=== PATIENT | female | born 1970 | race American Indian/Alaskan Native ===

== ENCOUNTER 2017-04-04 11:28 | Outpatient (CLI) | payer MEDICARE ==
--- NOTE | 2017-04-04 13:35 | Mammography Report ---
Bilateral mammogram: No previous studies available. CAD study utilized. Findings: Predominance of adipose tissue bilaterally. No mass or microcalcification. Benign calcifications bilaterally. Normal axilla. Impression: Benign findings. Annual followup recommended. BI-RADS CATEGORY: 2 = Benign ACR BI-RADS MAMMOGRAPHIC CODES: 0 = Needs additional imaging evaluation; 1 = Negative; 2 = Benign; 3 = Probably benign; 4 = Suspicious; 5 = Malignant; 6 = Known biopsy-proven malignancy COMMENT: 1. Dense breast tissue, i.e., adenosis, fibrocystic changes, etc., may obscure an underlying neoplasm. 2. Approximately 10% of cancers are not detected with mammography. 3. A negative mammography report should not delay biopsy if a clinically suspicious mass is present. COMMENT: Patient follow-up letters are generated in [employer].
== END 2017-04-04 11:29 | disposition home or self-care (01) ==
LOC: MAMMO 11:28
PROVIDERS: ATTEND Obstetrics & Gynecology
DX: Z12.31 Encounter for screening mammogram for malignant neoplasm of breast (principal); I10 Essential (primary) hypertension; F41.9 Anxiety disorder, unspecified
CPT/HCPCS: 77067; G0202

== ENCOUNTER 2017-07-15 07:17 | Outpatient (CLI) | payer MEDICARE ==
--- NOTE | 2017-07-15 10:15 | Cat Scan Report ---
CT of the abdomen and pelvis with IV and oral contrast. History: Pancreatic mass. Findings: Comparison is made to a previous study on October 25, 2014. A circumscribed hypodense mass in the superior aspect of the liver is similar in size and configuration to the previous study measuring approximately 2 cm in diameter. No peripheral contrast enhancement is seen. The remainder of the liver is unremarkable. The spleen is unremarkable. The pancreas is normal in size and configuration with no evidence of mass or peripancreatic inflammatory change. There is no evidence of pseudocyst. No pancreatic duct dilatation. The common duct is normal in caliber. The kidneys are normal in size and configuration with no evidence of mass or hydronephrosis. No adenopathy is seen within the retroperitoneum. There are no pelvic masses or abnormal fluid collections. The uterus has been removed. There is no evidence of appendicitis. Impression: 1. Stable benign hepatic cyst. 2. No evidence of pancreatic mass or other significant findings. 3. Status post hysterectomy.
== END 2017-07-15 07:18 | disposition home or self-care (01) ==
LOC: CT 07:17
PROVIDERS: ATTEND Internal Medicine
DX: K86.9 Disease of pancreas, unspecified (principal); K76.89 Other specified diseases of liver; Z90.710 Acquired absence of both cervix and uterus
CPT/HCPCS: 74177; Q9967

== ENCOUNTER 2017-10-22 11:00 | Observation (INO) | payer MEDICARE ==
--- NOTE | 2017-10-20 12:24 | Anesthesia Consultation ---
Anesthesia Consult and Med Hx Date of service: 10/20/17 - Airway Anesthetic Teeth Evaluation: Good (needs partials for lower ) ROM Head & Neck: Adequate Mental/Hyoid Distance: Adequate Mallampati Class: Class II Intubation Access Assessment: Possibly Difficult (Patient reports previous difficulty in placing ET tube) - Pulmonary Exam CTA: Yes - Cardiac Exam Cardiac Exam: RRR - Pre-Operative Health Status ASA Pre-Surgery Classification: ASA3 Proposed Anesthetic Plan: General - Pulmonary Hx Smoking: No Hx Sleep Apnea: Yes (No CPAP) - Cardiovascular System Hx Hypertension: No - Central Nervous System Hx Seizures: Yes (last seizure approx 3 weeks ago) Hx Psychiatric Problems: No - Gastrointestinal Hx Gastroesophageal Reflux Disease: Yes - Endocrine Hx Renal Disease: No Hx End Stage Renal Disease: No Hx Insulin Dependent Diabetes: No Hx Thyroid Disease: Yes (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
[2017-10-20 13:30] LABS: Eosinophils # (Auto) 0.1 K/mm3 (0.0-0.4); Eosinophils % (Auto) 2.6 % (0.0-4.3); Hematocrit 40.4 % (30.3-42.9); Hemoglobin 13.2 gm/dl (10.1-14.3); Lymphocytes # (Auto) 1.5 K/mm3 (1.2-5.4); Lymphocytes % (Auto) 33.8 % (13.4-35.0); Mean Corpuscular HGB Conc 33 % (30-34); Mean Corpuscular Hemoglobin 30 pg (28-32); Mean Corpuscular Volume 92 fl (79-97); Monocytes # (Auto) 0.3 K/mm3 (0.0-0.8); Monocytes % (Auto) 7.7 % (0.0-7.3); Platelet Count 208 K/mm3 (140-440); Red Blood Count 4.39 M/mm3 (3.65-5.03); Red Cell Distribution Width 12.9 % (13.2-15.2)
--- NOTE | 2017-10-21 17:22 | History and Physical Report ---
History of Present Illness Date of examination: 10/21/17 Date of admission: 10/22/2017 Chief complaint: pelvic pain History of present illness: 46y/o with chronic pelvic pain for many years. She has a history of a MISSAEL for uterine fibroids and later underwent a left salpingoophorectomy for an adnexal mass. The surgery of complicated by a serosal tear in the sigmoid colon. The procedure had to be converted to an exploratory laparotomy. She reports her pain has been worsening and strongly desires to have her remaining ovary removed. Past History Past Medical History: other (obesity; hiatal hernia) Past Surgical History: other (MISSAEL/ exploratory laparotomy/ left salpingoophorectomy/ BTL) [employer] CHIE[employer] History: herpes Social history: single - Obstetrical History : 4 Para: 2 Hx # Term Pregnancies: 2 Number of Pregnancies: 0 Spontaneous Abortions: 0 Induced : 2 Number of Living Children: 2 Medications and Allergies Allergies Allergy/AdvReac Type Severity Reaction Status Date / Time aspirin Allergy Unknown Verified 10/20/17 14:59 potassium clavulanate Allergy Vomiting Verified 10/20/17 14:59 [From Augmentin] shellfish derived Allergy Anaphylaxis Verified 10/20/17 14:59 shrimp Allergy Anaphylaxis Verified 10/20/17 14:59 amoxicillin trihydrate AdvReac Vomiting Verified 10/20/17 14:59 [From Augmentin] peach AdvReac Unknown Verified 10/20/17 14:59 Home Medications Medication Instructions Recorded Confirmed Last Taken Type Fexofenadine HCl [Cristina] 90 mg PO DAILY PRN 07/14/13 10/20/17 01/28/16 History 90 MG Calcium Carbonate/Vitamin D3 1 each PO DAILY 10/20/17 10/20/17 Unknown History [Caltrate 600 Plus D3 Tablet] Divalproex Sprinkle [DepaKOTE 125 mg PO BID 10/20/17 10/20/17 Unknown History SPRINKLE] Multivit-Min/FA/Lycopen/Lutein 1 each PO DAILY 10/20/17 10/20/17 Unknown History [Centrum Silver Tablet] Active Meds: Active Medications Sodium Chloride (Nacl 0.9% 1000 Ml) 1,000 mls @ 42 mls/hr IV DIRECT MAHAD Review of Systems All systems: negative Genitourinary: pelvic pain - Vital Signs Vital signs: Vital Signs Temp Pulse Resp BP 98.1 F 84 16 132/84 10/20/17 11:30 10/20/17 11:30 10/20/17 11:30 10/20/17 11:30 Temp Pulse Resp BP Pulse Ox 98.1 F 84 16 132/84 10/20/17 11:30 10/20/17 11:30 10/20/17 11:30 10/20/17 11:30 - Physical Exam Breasts: Positive: deferred Cardiovascular: Regular rate Lungs: Positive: Clear to auscultation Abdomen: Positive: normal appearance Results Result Diagrams: 10/20/17 11:09 All other labs normal. Assessment and Plan - Patient Problems (1) Chronic pelvic pain in female Status: Acute Plan to address problem: scheduled for a robotic right salpingoophorectomy
[~2017-10-22 11:00] MED LIST: ANCEF/STERILE WATER 2 GM/20 ML 2 GM/20 ML SYRINGE IV SCH; DECADRON IV ONE; NACL 0.9% 1000 ML 1,000 ML IV SCH; PEPCID IV NR; ROBINUL IV NR; VERSED IV NR
[2017-10-22] MEDS ORDERED: DIPRIVAN 10 MG/ML IV ONE (11:03)
[2017-10-22] MEDS ORDERED: ZEMURON IV ONE (11:04)
[2017-10-22] MEDS ORDERED: XYLOCAINE MPF 2% ONE (11:04)
[2017-10-22] MEDS ORDERED: DILAUDID ONE (11:04)
[2017-10-22] MEDS ORDERED: DECADRON IV SCH (11:23)
[2017-10-22] MEDS ORDERED: PEPCID IV SCH (12:21)
--- NOTE | 2017-10-22 12:38 | Anesthesia Day of Surgery ---
Anesthesia Day of Surgery - Day of Surgery Patient Examined: Yes Patient H&P Reviewed: Yes Patient is NPO: Yes
[2017-10-22] MEDS ORDERED: VERSED IV NR (13:00)
[2017-10-22] MEDS ORDERED: MARCAINE 0.25% INFILTRATI ONE (13:12)
[2017-10-22] MEDS ORDERED: NACL 0.9% IR ONE ×2 (14:00)
[2017-10-22] MEDS ORDERED: QUELICIN ONE (14:02)
[2017-10-22] MEDS ORDERED: ZOFRAN ONE (14:21)
[2017-10-22] MEDS ORDERED: DECADRON ONE (14:24)
[2017-10-22] MEDS ORDERED: ROBINUL ONE (14:49)
[2017-10-22] MEDS ORDERED: NEOSTIGMINE ONE (14:49)
--- NOTE | 2017-10-22 14:57 | Operative Report ---
Operative Report Operative Report: Date of surgery: 10/22/2017 Preoperative diagnoses: Chronic pelvic pain Postoperative diagnoses: Same as above; pelvic adhesive disease Procedure: Robotic right salpingo-oophorectomy; lysis of adhesions Surgeon: Holly Barber M.D. Barrel Brander: Cailin Marroquin Anesthesia: Gen. endotracheal anesthesia Estimated blood loss: 50 mL Pathology: Right tube and ovary; leiomyoma Indication: 46-year-old with a history of worsening chronic pelvic pain. The patient has a history of a prior total abdominal hysterectomy and a subsequent left salpingo-oophorectomy for left adnexal mass. The patient reported continued right lower quadrant pain that was worsening in nature. Procedure: The patient was taken to the operating room and given general endotracheal anesthesia without complication. She is prepped and draped in a normal sterile fashion. A bivalve speculum was placed in the patient's vagina and a single- tooth tenaculum placed on the anterior lip of the cervix. The uterus was sounded with the uterine sound. A AdventureDrop uterine manipulator was placed in the bivalve speculum was then removed. Attention was then turned to the patient's abdomen where a millimeter supra umbilical skin incision was then made. A Veress needle was placed and peritoneal entry was verified water-filled syringe. Insufflation of the peritoneal cavity was performed with CO2 gas. The 12 mm trocar was then placed under direct visualization. An additional 8 mm trocar was placed on the patient's left and right lateral side just opposite of the supraumbilical trocar. An additional 10 mm right lateral trocar was then placed as the accessory port. The patient was then placed in steep Trendelenburg. The da Thuy robot was then engaged. A fenestrated forcep was placed in arm 2 and a monopolar scissors were placed in arm 1. The surgeon then transferred to the surgical console. Survey of the patient's abdomen and pelvis revealed a surgically absent right uterus and left tube and ovary. The the right tube and ovary were densely adherent to the right pelvic sidewall. Extensive lysis of adhesions had to be performed with the monopolar scissors and the fenestrated grasper in order to isolate the right adnexa. The right infundibulopelvic ligament was isolated and coagulated. After sufficient coagulation of the vessel was performed the vessel was transected. After securing the blood supply to the right adnexa additional lysis of adhesions had to be performed in order to release the right adnexa from the right pelvic sidewall. There was findings of a small 5 mm lesion that appeared to be consistent with a leiomyoma that was also removed. The Endo Catch bag was placed through the 10 mm trocar site. The right adnexa was placed in the Endo Catch bag and removed through the port. Copious irrigation of the pelvis was performed and Alec was applied to the surgical site. Interceed was also placed on the surgical site. The supraumbilical 12 mm trocar site and the right lateral 10 mm trocar site were closed with the Garcia Petersen device. The skin was then reapproximated with 4-0 Monocryl. The tissue was sent to pathology which included the right tube and ovary. The small adherent specimen that was removed appeared to be consistent with a degenerated leiomyoma. The patient was then successfully extubated. She was then taken to the recovery room in stable condition. All sponge laps and needle counts were correct x2.
[2017-10-22] MEDS ORDERED: NARCAN 0.4 MG/1 ML IV PRN (15:05)
[2017-10-22] MEDS ORDERED: PERCOCET 5/325 PO PRN (15:06)
[2017-10-22] MEDS ORDERED: MILK OF MAGNESIA PO PRN (15:06)
[2017-10-22] MEDS ORDERED: TYLENOL PO PRN (15:06)
[2017-10-22] MEDS ORDERED: MOTRIN PO PRN (15:06)
[2017-10-22] MEDS ORDERED: ZOFRAN IV PRN (15:06)
--- NOTE | 2017-10-22 15:27 | Post Anesthesia Evaluation ---
- Post Anesthesia Evaluation Patient Participated: Yes Airway Patent: Yes Stable Respiratory Function: Yes Nausea/Vomiting: No Temp > 96.8F: Yes Pain Manageable: Yes Adequeate Hydration: Yes Anesthesia Complications: No
[2017-10-22] MEDS ORDERED: MORPHINE PCA 30MG/30ML IV SCH (16:00)
[2017-10-22] MEDS ORDERED: TORADOL ONE (16:12)
[2017-10-22] MEDS: TORADOL IV SCH ×2 (16:13→22:16)
[2017-10-22] MEDS: D5LR 1,000 ML IV SCH (22:21)
[2017-10-23 04:54] LABS: Hematocrit 38.2 % (30.3-42.9); Hemoglobin 12.5 gm/dl (10.1-14.3)
[2017-10-23] MEDS: D5LR 1,000 ML IV SCH (06:18)
[2017-10-23] MEDS: TORADOL IV SCH (06:19)
--- NOTE | 2017-10-23 08:31 | Progress Note ---
Assessment and Plan - Patient Problems (1) Chronic pelvic pain in female Current Visit: No Status: Acute Plan to address problem: patient doing well discharge home Subjective - Subjective Date of service: 10/23/17 Interval history: Patient without complaints. Surgery explained to patient. Patient reports: appetite normal, voiding normally, pain well controlled Objective - Vital Signs Latest vital signs: Vital Signs Temp Pulse Resp BP BP Pulse Ox 10/23/17 06:22 18 10/23/17 06:19 18 10/23/17 04:05 16 10/23/17 03:25 98.9 F 76 18 105/65 10/23/17 01:56 20 10/23/17 00:05 98.8 F 83 20 107/62 10/23/17 00:00 18 10/22/17 22:16 18 10/22/17 22:10 18 10/22/17 20:30 98.5 F 103 H 18 103/65 10/22/17 19:30 20 10/22/17 16:50 99 F 84 16 140/83 10/22/17 16:00 99.0 F 71 22 143/85 95 10/22/17 15:45 70 22 138/84 95 10/22/17 15:40 70 25 H 130/79 95 10/22/17 15:35 68 24 140/77 93 10/22/17 15:30 70 26 H 138/80 94 10/22/17 15:25 68 27 H 133/81 93 10/22/17 15:19 97.3 F L 70 21 118/79 94 10/22/17 11:30 97.6 F 92 H 18 116/79 98 Intake and Output 10/22/17 10/23/17 10/23/17 22:59 06:59 14:59 Intake Total 150 1593.75 Output Total 500 900 Balance -350 693.75 Intake: IV 150 993.75 D5lr 1,000 ml @ 125 mls/ 993.75 hr IV DIRECT [facility] Rx#: [id number] Intake, Free Water 600 Output: Urine 500 900 Indwelling Catheter 300 900 Other: Total, Output Amount 300 400 Voiding Method Indwelling Catheter - Exam Abdomen: Present: normal appearance Incision: Present: normal
--- NOTE | 2017-10-23 08:34 | Discharge Summary ---
Providers - Providers Date of Admission: 10/22/17 15:06 Date of discharge: 10/23/17 Attending physician: RAJIV DHILLON Primary care physician: GERONIMO MONZON Hospitalization Reason for admission: other (pelvic pain) Procedure: other (robotic-assisted right salpingo-oophorectomy) Incision: normal Discharge diagnosis: other (chronic pelvic pain) Hospital course: The patient was admitted to day surgery and underwent a robotic-assisted right salpingo-oophorectomy and lysis of adhesions. Please see operative note for details of surgery. Postoperative course was uneventful. Condition at discharge: Good Disposition: DC-01 TO HOME OR SELFCARE - Discharge Diagnoses (1) Chronic pelvic pain in female Status: Acute Plan - Discharge Medications Prescriptions: Ibuprofen [Motrin] 800 mg PO Q8HR PRN #60 tablet PRN Reason: Pain Oxycodone HCl/Acetaminophen [Percocet 7.5/325 mg] 1 each PO Q6HR PRN #30 tablet PRN Reason: Pain - Provider Discharge Summary Activity: no sex for 6 weeks, no heavy lifting 4 weeks, no strenuous exercise Diet: routine Instructions: routine Additional instructions: [] Smoking cessation referral if applicable(refer to patient education folder for contact #) [] Refer to [facility] Booklet Call your doctor immediately for: * Fever > 100.5 * Heavy vaginal bleeding ( >1 pad per hour) * Severe persistent headache * Shortness of breath * Reddened, hot, painful area to leg or breast * Drainage or odor from incision. * Keep incision clean and dry at all times and follow doctor's instructions regarding bathing/showering Schedule follow-up in 4 weeks - Follow up plan
[2017-10-23 08:49] VITALS: BP 101/68
== END 2017-10-23 10:26 | disposition home or self-care (01) ==
LOC: OR 11:00 → OB 15:06
PROVIDERS: ADMIT Obstetrics & Gynecology; ATTEND Obstetrics & Gynecology
DX: R10.2 Pelvic and perineal pain (principal); N73.6 Female pelvic peritoneal adhesions (postinfective); E66.9 Obesity, unspecified; G47.30 Sleep apnea, unspecified; K21.9 Gastro-esophageal reflux disease without esophagitis; E03.9 Hypothyroidism, unspecified; Z90.710 Acquired absence of both cervix and uterus; Z68.41 Body mass index [BMI] 40.0-44.9, adult
CPT/HCPCS: 36415; 58661; 85014; 85018; 85025; 88305; 88307; 96374; 96375; 96376; A4217; C1765; G0378; J0330; J0690; J1100; J1170; J1885; J2250; J2270; J2405; J2704; J2710; J7030; J7121

== ENCOUNTER 2018-01-01 13:40 | Outpatient (CLI) | payer MEDICARE ==
[2018-01-01 13:59] LABS: Hematocrit 43.8 % (30.3-42.9); Hemoglobin 14.2 gm/dl (10.1-14.3); Mean Corpuscular HGB Conc 33 % (30-34); Mean Corpuscular Hemoglobin 31 pg (28-32); Mean Corpuscular Volume 94 fl (79-97); Platelet Count 239 K/mm3 (140-440); Red Blood Count 4.66 M/mm3 (3.65-5.03); Red Cell Distribution Width 13.7 % (13.2-15.2)
[2018-01-01 14:29] LABS: Alanine Aminotransferase 36 units/L (7-56); Albumin 4.4 g/dL (3.9-5); BUN/Creatinine Ratio 11; Blood Urea Nitrogen 9 mg/dL (7-17); Calcium 9.3 mg/dL (8.4-10.2); Hemolysis Index 3
== END 2018-01-01 13:41 | disposition home or self-care (01) ==
LOC: LAB 13:40
PROVIDERS: ATTEND Specialist
DX: G40.219 Localization-related (focal) (partial) symptomatic epilepsy and epileptic syndromes with complex partial seizures, intractable, without status epilepticus (principal)
CPT/HCPCS: 36415; 80053; 80164; 85027

== ENCOUNTER 2018-03-03 12:44 | Outpatient (CLI) | payer MEDICARE | END 2018-03-03 12:45 | disposition home or self-care (01) | LOC: LAB 12:44 | PROVIDERS: ATTEND Specialist | DX: R56.9 Unspecified convulsions (principal); E66.9 Obesity, unspecified | CPT/HCPCS: 36415; 80164 ==

== ENCOUNTER 2018-04-06 07:17 | Outpatient (CLI) | payer MEDICARE ==
--- NOTE | 2018-04-06 08:47 | Cat Scan Report ---
CT NECK WITH AND WITHOUT CONTRAST: HISTORY: Right neck mass. TECHNIQUE: Helical CT following IV contrast. Sagittal and coronal reformatted images. FINDINGS: The parotid and submandibular glands are normal. The carotid sheaths are intact. There is no evidence of adenopathy within the neck. The thyroid gland is normal. The glottic structures are normal. The airway is patent. Strap musculature is unremarkable. Hyoid bone and thyroid cartilage are intact. IMPRESSION: Unremarkable CT neck with and without contrast. No suspicious right neck mass or adenopathy is detected.
== END 2018-04-06 07:18 | disposition home or self-care (01) ==
LOC: CT 07:17
PROVIDERS: ATTEND Internal Medicine Endocrinology, Diabetes & Metabolism
DX: R22.1 Localized swelling, mass and lump, neck (principal); E66.9 Obesity, unspecified; K21.9 Gastro-esophageal reflux disease without esophagitis; M19.90 Unspecified osteoarthritis, unspecified site; F41.9 Anxiety disorder, unspecified; E03.9 Hypothyroidism, unspecified; Z91.013 Allergy to seafood; Z90.710 Acquired absence of both cervix and uterus; Z90.722 Acquired absence of ovaries, bilateral; Z88.1 Allergy status to other antibiotic agents; Z88.6 Allergy status to analgesic agent
CPT/HCPCS: 70492; Q9967

== ENCOUNTER 2018-06-09 12:39 | Outpatient (CLI) | payer MEDICARE | END 2018-06-09 12:40 | disposition home or self-care (01) | LOC: LAB 12:39 | PROVIDERS: ATTEND Specialist | DX: G40.209 Localization-related (focal) (partial) symptomatic epilepsy and epileptic syndromes with complex partial seizures, not intractable, without status epilepticus (principal); K21.9 Gastro-esophageal reflux disease without esophagitis; E66.9 Obesity, unspecified; Z90.710 Acquired absence of both cervix and uterus; Z90.721 Acquired absence of ovaries, unilateral | CPT/HCPCS: 36415; 80164 ==